=== PATIENT | female | born 1985 | race Caucasian/White ===

== ENCOUNTER → 2017-07-05 | Day surgery (SDC) | payer SELFPAY ==
--- NOTE | 2017-07-04 17:16 | MH ---
cc: WADE JOEL M.D. DATE OF ADMISSION 07/05/2017 HISTORY OF THE PRESENT ILLNESS The patient is a 32-year-old white female . Last menstrual period was in March when she first started her care with us this past April. She presented really kind of for a yearly checkup. She was reporting painful menses. She has a Paragard which was in over 10 years. We performed a Pap smear for her at this visit which came back with a finding of a high-grade LUIS A. We performed a colposcopy on her which revealed lesions, two different areas between 9 and 12 o'clock and between 3 and 6 o'clock. The 9-12 o'clock had mosaicism and the 3-6 o'clock had white epithelium. Those pathologies came back as, the first one came back with high-grade lesion. The second biopsy came back with benign tissue, and the ECC came back with a high-grade DANELLE II lesion. Due to the abnormal findings on the Pap and the colposcopy I recommended that she undergo a cold knife cone biopsy before we proceed with any other treatment for her periods. She understands and desires to proceed. PAST MEDICAL HISTORY The past medical history on the patient is: Irritable bowel syndrome. PAST SURGICAL HISTORY Negative. MEDICATIONS Currently are none. ALLERGIES None. SOCIAL HISTORY Four cigarettes per day. Four drinks per week. No drug use. She is and works as a windows server administrator. FAMILY HISTORY Alzheimer's, thyroid and breast cancer. REAL ESTATE LEGAL ASSISTANT HISTORY No prior abnormal Pap smear. No history of STDs. OB HISTORY x1. PHYSICAL EXAMINATION VITAL SIGNS: Her weight is 125, height 5 feet, 4 inches. Blood pressure 120/74, pulse of 70. BREASTS: Without masses, nodes or discharge. CHEST: Clear to auscultation bilaterally. CARDIOVASCULAR: Regular rate and rhythm without murmur, rub or gallop. ABDOMEN: Soft, nontender, nondistended. There is no hepatosplenomegaly. No CVA tenderness. No hernias noted. PELVIC: Exam normal external female genitalia without lesions. Vaginal vault without lesions. Cervix with the lesions as I described on her colpooscopy. Uterus palpates normal size, nontender, no adnexal masses. ASSESSMENT/PLAN On the patient include a high-grade LUIS A on ecto and endocervix. Plan will be for a cold knife cone biopsy. MD WENDY Panchal/KK /4:47 PM /5:01 PM
[~2017-07-05] VITALS: Ht 163.4 cm; Wt 58.5 kg
[~2017-07-05] MED LIST: BUPIVACAINE/EPINEPHRINE 0.75% PF 30 ML VIAL ONE; CHLORHEXIDINE GLUCONATE 2 % 1 PACK (2 CLOTHS) TOPICAL PRN; DEXAMETHASONE SOD PHOS 4 MG/ML VIAL IV ONE; DO NOT ADM ANY ANTICOAGULANT DRUGS PRN; KETOROLAC TROMETHAMINE 30 MG/ML (IVP) VIAL IV PUSH ONE; LACTATED RINGER'S 1000 ML IV PRN; LIDOCAINE 0.5%/EPINEPHrine 1:200,000 SOLN 50 ML VIAL ONE; LIDOCAINE HCL 1% PF 5 ML SYRINGE OTHER ONE; METOPROLOL TARTRATE 25 MG TAB PO PRN; MIDAZOLAM HCL 2 MG/2 ML VIAL ONE; ONDANSETRON HCL 4 MG/2 ML VIAL IV ONE; ONDANSETRON HCL 4 MG/2 ML VIAL IV PUSH PRN; POVIDONE IODINE 5% (ANTISEPSIS KIT) 4 APPLICATIONS EACH NARE PRN; PROPOFOL 200 MG/20 ML AMP IV ONE; SODIUM CHLORID 0.9% 500 ML IV PRN; oxyCODONE/ACETAMINOPHEN 5 MG/325 MG TAB PO ONE
[2017-07-05 12:30] VITALS: BP 106/61; PULSE 73; RESP 16; TEMP 98.1; O2SAT 97
--- NOTE | 2017-07-06 09:41 | MP ---
cc: WADE JOEL M.D. DATE OF SURGERY: 07/05/2017 PREOPERATIVE DIAGNOSIS Severe cervical dysplasia of the ectocervix and the endocervix. POSTOPERATIVE DIAGNOSIS Severe cervical dysplasia of the ectocervix and the endocervix. PROCEDURE PERFORMED Cold knife cone biopsy. OPERATING SURGEON Wade Joel. ANESTHESIA General endotracheal. FINDINGS In surgery included a large cervix. BLOOD LOSS Minimal. COMPLICATIONS Were none. PROCEDURE IN DETAIL After proper consents were obtained, the patient was taken to the operating room where general endotracheal anesthesia was applied. She was then placed in dorsolithotomy position, sterilely prepped and draped. At this time, a weighted speculum was placed in the vaginal vault. I placed a 0 Vicryl suture at the 3 o'clock position as a stay suture as well as the 9 o'clock position. I then injected lidocaine with epinephrine solution circumferentially around the cervix. I then performed a cold knife cone biopsy, very large in nature, due to the ____ ECC of the cervix and endocervix, easily. I performed some cautery of the cone bed. I then ran the 3 o'clock suture to the 9 o'clock suture in an interlocking fashion and then I ran the 9 o'clock suture to the 3 o'clock suture in interlocking fashion. Excellent hemostasis noted. I placed her Surgicel on the cone bed and then tied that over with stay sutures. At this time, I removed all instruments, counts were correct, hemostasis assured and the patient was stable to the recovery room. MD WENDY Panchal/NÉSTOR /11:10 AM /9:28 AM
== END | disposition home or self-care (01) ==
LOC: HSDC 08:16
PROVIDERS: ATTEND Obstetrics & Gynecology
DX: D06.0 Carcinoma in situ of endocervix (principal); K58.9 Irritable bowel syndrome, unspecified
CPT/HCPCS: 00940; 57520; 84702; 88305; 88307; J1100; J1885; J2250; J2405; J3010